=== PATIENT | female | born 1945 | race Caucasian/White ===

== ENCOUNTER 2022-12-26 14:55 | Observation (INO) | payer MEDICARE, OTHER ==
[~2022-12-26] VITALS: Ht 149.9 cm; Wt 46.0 kg
[2022-12-26] VITALS (17 sets, daily range): BP systolic 133–217; BP diastolic 70–112
--- NOTE | 2022-12-26 14:58 | NUR ---
PATIENT ASSISTED FROM TRUCK TO ROOOM VIA WHEELCHAIR
[2022-12-26 15:51] LABS: BASO% 0.9 % (0-3); EOS% 4.3 % (0-8); HEMATOCRIT 32.1 % (37.0-47.0); HEMOGLOBIN 9.4 g/dl (12.0-16.0); IMMATURE GRANULOCYTES 0.9 % (0.0-5.0); LYMPH% 23.6 % (15-41); MEAN CELL VOLUME 95.3 fL CALC (80.0-100.0); MEAN CORPUSCULAR HGB 27.9 pG CALC (26.0-32.0); MEAN CORPUSCULAR HGB CONC 29.3 g/dL CAL (32.0-36.0); MONO% 8.9 % (2-13); NEUT# 4.27 thou/uL (2.00-7.15); NEUT% 61.4 % (42-76); RED BLOOD COUNT 3.37 mill/uL (4.20-5.60); RED CELL DISTRI WIDTH 16.8 % (11.5-15.5)
[2022-12-26 15:54] LABS: ALBUMIN 3.9 g/dL (3.2-5.0); ALKALINE PHOSPHATASE 109 u/l (38-126); ANION GAP 11 (6-22 (CALC)); BILIRUBIN, TOTAL 0.3 mg/dL (0.02-1.3); BUN 23 mg/dL (8-23); BUN/CREATININE RATIO 7 (12-20 (CALC)); CARBON DIOXIDE 25 mmol/l (22-30); CHLORIDE 102 mmol/l (95-108); CREATININE 3.2 mg/dL (0.5-1.0); GFR FOR AFR.AMER. 17 ML/MIN (>=60 (CALC)); GFR OTHER RACES 14 ML/MIN (>=60 (CALC)); POTASSIUM 4.1 mmol/l (3.5-5.1); SGOT/AST 29 u/l (9-36); SODIUM 134 mmol/l (137-146); TOTAL PROTEIN 6.6 g/dL (6.3-8.2)
[2022-12-26] MEDS ORDERED: PLAVIX75 MG PO (16:48)
[2022-12-26] MEDS ORDERED: PROTONIX40 M2 PO (16:50)
[2022-12-26] MEDS ORDERED: HYDROCO/APAP1 TA9 PO (16:51)
--- NOTE | 2022-12-26 17:36 | NUR ---
PT AND FAMILY DENY ANY NEEDS AT THIS TIME. PT IS OBSERVED BEING MORE AWKAE AND FOLLOWING COMMANDS.
--- NOTE | 2022-12-26 20:07 | NUR ---
PT AND FAMILY DENY ANY NEEDS AAT THIS TIME, WILL CONTINUE TO MONITOR THE PATIENT.
--- NOTE | 2022-12-26 22:45 | NUR ---
Admission Note Report Given to: AGUSTÍN AGUAYO Transported by: Derick Transported with: Nurse [employer] Economic Development Coordinator Location: [facility] – [place] ROOM [id number]
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
--- NOTE | 2022-12-27 01:55 | NUR ---
PATIENT AWAKE AND ASSISTED TO BR TO VOID YELLOW URINE. SPEC OBTAINED AND SENT TO LAB. ASSISTED BACK TO BED. SAFETY PRECAUTIONS REINFORCED. BED ALARM IN PLACE FOR PATIENT SAFETY. CALL LIGHT IN REACH. WILL CONT TO MONITOR.
[2022-12-27 02:00] LABS: URINE BILIRUBIN - DIPSTICK NEGATIVE (NEGATIVE); URINE BLOOD DIPSTICK MODERATE (NEGATIVE); URINE COLOR YELLOW; URINE GLUCOSE - DIPSTICK 100 mg/dL (NEGATIVE); URINE KETONE NEGATIVE (NEGATIVE); URINE PROTEIN - DIPSTICK 100 mg/dL (NEG-TRACE); URINE SPECIFIC GRAVITY 1.015; URINE UROBILINOGEN - DIPSTICK 0.2 E.U./dL (0.2)
[2022-12-27 02:08] LABS: URINE LEUK ESTERASE NEGATIVE (NEGATIVE); URINE NITRITE - DIPSTICK NEGATIVE (Negative)
[2022-12-27 02:09] LABS: URINE BACTERIA MODERATE hpf; URINE EPITHELIAL CELLS FEW EPI/hpf (0-FEW); URINE YEAST FEW hpf
--- NOTE | 2022-12-27 03:56 | NUR ---
PATIENT RESTING IN BED-POSITIONED ON LEFT SIDE WITH EYES CLOSED. RESPS ARE EVEN AND UNLABORED. TELE MONITOR IN PLACE-LAST READING WAS SR-60'S. SALINE LOCK TO RAC INTACT. BED ALARM IN PLACE FOR PATIENT SAFETY. CALL LIGHT IN REACH. WILL CONT TO MONITOR.
[2022-12-27 04:25] VITALS: BP 155/60
[2022-12-27 06:29] VITALS: BP 182/71
--- NOTE | 2022-12-27 08:00 | NUR ---
RECEIVE REPORT FROM AGUSTÍN AGUAYO.
--- NOTE | 2022-12-27 08:00 | NUR ---
Patient alert and oriented x3. It does not refer pain or disagreement at the time of this note.Patient is educated aboud medications and nursing plan for today. Pt refer understand . Safety and fall precautions in place. Call light within in reach.
[2022-12-27 08:30] VITALS: BP 182/71
[2022-12-27 10:32] VITALS: BP 163/71
[2022-12-27 11:50] VITALS: BP 163/71
[2022-12-27] MEDS ORDERED: ROWEEPRA500 MG PO ×2 (12:21→16:00)
[2022-12-27] MEDS ORDERED: LIPITOR80 M1 PO (12:22)
[2022-12-27] MEDS ORDERED: GENTAMICIN0.1 % EX (12:24)
[2022-12-27] MEDS ORDERED: FAMOTIDINE20 M1 PO (12:24)
[2022-12-27] MEDS ORDERED: OMNI-PAC300 MG PO (12:24)
[2022-12-27] MEDS ORDERED: RENVELA800 MG PO (12:25)
--- NOTE | 2022-12-27 12:39 | NUR ---
PATIENT STABLE AT THIS TIME. RESTING IN BED. SAFETY AND FALL PRECAUTIONS IN PLACE. CALL LIGHT WITHIN IN REACH.
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
--- NOTE | 2022-12-27 14:02 | NUR ---
CALLED IN A PHYSICIAN CONSULT FOR DR CASE. I SPOKE WITH CRAIG AT 1400 HRS
--- NOTE | 2022-12-27 15:31 | NUR ---
Discharge instructions given. Patient verbalizes understanding of same. Discharged in stable condition via Wheelchair to Home with staff. All belongings sent with pt.
== END 2022-12-27 15:31 | disposition home or self-care (01) ==
LOC: ED 14:55 → MS2 19:01
PROVIDERS: Nurse Practitioner; ADMIT Internal Medicine; ATTEND Internal Medicine
DX: R56.9 Unspecified convulsions (principal); I12.0 Hypertensive chronic kidney disease with stage 5 chronic kidney disease or end stage renal disease; N18.6 End stage renal disease; Z99.2 Dependence on renal dialysis; E87.1 Hypo-osmolality and hyponatremia; N25.81 Secondary hyperparathyroidism of renal origin; Z86.73 Personal history of transient ischemic attack (TIA), and cerebral infarction without residual deficits
CPT/HCPCS: J1953